=== PATIENT | male | born 1980 | race Caucasian/White ===

== ENCOUNTER 2018-03-02 15:16 | Emergency (ER) | payer OTHER, BC ==
[2018-03-02] MEDS ORDERED: Diphtheria,Pertussis(Acell),Tetanus Vaccine 0.5 ML Syringe IM ONE (15:36)
--- NOTE | 2018-03-02 16:01 | CR ---
EXAMINATION: Right hand, second digit HISTORY: Injury COMPARISON: 07/21/2010 TECHNIQUE: 3 views FINDINGS/IMPRESSION: Comminuted fractures through the distal first phalanx. Margins appear somewhat c orticated and an old injury cannot be excluded. Soft tissue swelling noted overlying the proximal asp ect of the phalanx.
[2018-03-02] MEDS ORDERED: ceFAZolin 1 GM Vial IM ONE (16:06)
--- NOTE | 2018-03-02 16:24 | EDM.PDOC ---
ED HPI GENERAL MEDICAL PROBLEM - General Chief Complaint: Laceration Stated Complaint: INJURY FINGER AT WORK Time Seen by Provider: 03/02/18 16:13 Source of Information: Reports: Patient, Family History Limitations: Reports: No Limitations - History of Present Illness INITIAL COMMENTS - FREE TEXT/NARRATIVE: HISTORY AND PHYSICAL: []Presents with laceration injury to his right index finger. Gloves are on. Patient was putting a tire on the rim with a hydraulic machine and caught his right index finger between the rim and the tire. History of Present Illness: []Patient has history of tuft fracture to the right index finger Patient does not remember exactly when his last tetanus shot was received probably 10 years ago Review of Systems: As per history of present illness and below otherwise all systems reviewed and negative. Past medical history: As per history of present illness and as reviewed below otherwise noncontributory. Surgical history: As per history of present illness and as reviewed below otherwise noncontributory. Social history: No reported history of drug or alcohol abuse. Family history: As per history of present illness and as reviewed below otherwise noncontributory. Physical exam: Pleasant alert gentleman who is answering questions in full sentences, without any shortness of breath. HEENT: Atraumatic, normocehpalic, pupils reactive, negative for conjunctival pallor or scleral icterus, mucous membranes moist, throat clear, neck supple, nontender, trachea midline. Lungs: Clear to auscultation, breath sounds equal bilaterally, chest non tender. Heart: S1S2, regular, negative for clicks, rubs, or JVD. Abdomen: Soft, nondistended, nontender. Negative for masses or hepatossplenmegaly. Negative for costovertebral tenderness. Pelvis: Stable nontender. Genitourinary: Deferred. Rectal: Deferred Extremities: traumatic to his right index finger almost circumferential involving three quarters of the finger. He is able to flex and extend his finger., negative for cords or calf pain. Neurovascular unremarkable. Neuro: Awake, alert, oriented. Cranial nerves II through XII unremarkable. Cerebellum unremarkable. Motor and sensory unremarkable throughout. Exam nonfocal. Discussed this case with , hand specialist jackeline Mac [place] who recommended to wash well and place on oral keflex then he would see him on MondayMarch 05. I expressed concern of the laceration possibly extending into the joint and no change was made with the recommendation. 3 sutures were placed after copious saline washing, no foreign material was seen , we'll place on oral cephalexin refer to hand surgeon of choice. Diagnostics: []X-ray index finger on right Therapeutics: []ancef t-dap. Impression: []laceration Plan: []Discharge to home See hand surgeon on Monday, April 04, 2010 Bacitracin applied over laceration and bulky dressing over that Hydrocodone/APAP 10 mg 3 times a day prn pain #12NR Return to the emergency department as directed and discussed Definitive disposition and diagnosis as appropriate pending reevaluation and review of above. Onset: Today, Sudden Location: Reports: Upper Extremity, Right Right 2-Index finger Pain Score (Numeric/FACES): 7 - Related Data Allergies Allergy/AdvReac Type Severity Reaction Status Date / Time No Known Allergies Allergy Verified 03/02/18 15:35 Home Meds: Home Meds . [No Known Home Meds] 03/02/18 [History] Past Medical History - Past Health History Medical/Surgical History: Denies Medical/Surgical History - Infectious Disease History Infectious Disease History: Reports: Chicken Pox Social & Family History - Family History Family Medical History: Noncontributory - Tobacco Use Smoking Status *Q: Current Every Day Smoker Years of Tobacco use: 18 Packs/Tins Daily: 1 - Recreational Drug Use Recreational Drug Use: No ED ROS GENERAL - Review of Systems Review Of Systems: ROS reveals no pertinent complaints other than HPI. ED EXAM, SKIN/RASH Exam: See Below (see dictation) ED SKIN PROCEDURES - Laceration/Wound Repair Right Medial Finger Lac/Wound length In cm: 3.5 Appearance: Muscle, Linear, Mildly Contaminated Distal NVT: Neuro & Vascular Intact Anesthetic Type: Local Local Anesthesia - Lidocaine (Xylocaine): 1% Plain Local Anesthetic Volume: 5cc Skin Prep: Saline Suture Size: 4-0 # of Sutures: 3 Suture Type: Nylon, Interrupted, Simple Drain Placement: No Sterile Dressing Applied: Nurse Tetanus Status Addressed: Yes Complications: Yes Course - Vital Signs Last Recorded V/S: Last Vital Signs Temp 36.1 C 03/02/18 15:31 Pulse 106 H 03/02/18 15:31 Resp 18 03/02/18 15:31 BP 164/108 H 03/02/18 15:31 Pulse Ox 100 03/02/18 15:31 - Orders/Labs/Meds Orders: Active Orders 24 hr Category Date Time Status Vaccines to be Administered [RC] PER UNIT ROUTINE Care 03/02/18 15:36 Active Meds: Medications Discontinued Medications Generic Name Dose Route Start Last Admin Trade Name Jamil PRN Reason Stop Dose Admin Bacitracin 2 dose 03/02/18 17:04 Bacitracin Oint 1 Gm TOP 03/02/18 17:05 ONETIME ONE Cefazolin Sodium 1 gm 03/02/18 16:06 03/02/18 16:38 Ancef IM 03/02/18 16:07 1 gm ONETIME ONE Administration Diphtheria/Tetanus/Acell Pertussis 0.5 ml 03/02/18 15:36 03/02/18 16:39 Adacel IM 03/02/18 15:37 0.5 ml .ONCE ONE Administration Sterile Water Confirm 03/02/18 16:31 03/02/18 16:41 Sterile Water For Injection Administered 03/02/18 16:32 1 mls/hr Dose Administration 20 mls @ as directed .ROUTE .STK-MED ONE Lidocaine HCl 20 ml 03/02/18 16:25 03/02/18 16:39 Xylocaine 1% INJECT 03/02/18 16:26 20 ml ONETIME ONE Administration Departure - Departure Time of Disposition: 17:15 Disposition: Home, Self-Care 01 Condition: Good Clinical Impression: Laceration - Discharge Information Instructions: Laceration Care, Adult, [id number], Pain Medicine Instructions , [id number], Stitches, Elli, or Adhesive Wound Closure, [id number] Referrals: PCP,None [Primary Care Provider] - Sahra Guerrero MD [Physician] - Forms: ED Department Discharge Additional Instructions: The following information is given to patients seen in the emergency department who are being discharged to home. This information is to outline your options for follow-up care. We provide all patients seen in our emergency department with a follow-up referral. The need for follow-up, as well as the timing and circumstances, are variable depending upon the specifics of your emergency department visit. If you don't have a primary care physician on staff, we will provide you with a referral. We always advise you to contact your personal physician following an emergency department visit to inform them of the circumstance of the visit and for follow-up with them and/or the need for any referrals to a consulting specialist. The emergency department will also refer you to a specialist when appropriate. This referral assures that you have the opportunity for followup care with a specialist. All of these measure are taken in an effort to provide you with optimal care, which includes your followup. Under all circumstances we always encourage you to contact your private physician who remains a resource for coordinating your care. When calling for followup care, please make the office aware that this follow-up is from your recent emergency room visit. If for any reason you are refused follow-up, please contact the [facility] emergency department at and asked to speak to the emergency department charge nurse. You had 1 g of Ancef IM Will be placed on cephalexin 500 mg 3 times a day Hydrocodone/APAP 10/325 one 3 times a day when necessary pain number of 12 Follow-up with Dr. Deidre Guerrero [facility] [address] [place] [address], [address] [place] [address] Admission option would be to see [place] on [phone] Any worsening of symptoms return to the emergency department over the weekend for reevaluation as discussed - My Orders Last 24 Hours: My Active Orders 03/02/18 15:36 Vaccines to be Administered [RC] PER UNIT ROUTINE - Assessment/Plan Last 24 Hours: My Active Orders 03/02/18 15:36 Vaccines to be Administered [RC] PER UNIT ROUTINE
[2018-03-02] MEDS ORDERED: Lidocaine 1% 20 ML MDV INJECT ONE (16:25)
[2018-03-02] MEDS ORDERED: Water For Injection, Sterile 20 ML ONE (16:31)
[2018-03-02] MEDS ORDERED: Bacitracin Oint 1 GM U/D Packet TOP ONE (17:04)
== END 2018-03-02 17:35 | disposition home or self-care (01) ==
LOC: MW.ED 15:16
DX: S61.210A Laceration without foreign body of right index finger without damage to nail, initial encounter (principal); F17.210 Nicotine dependence, cigarettes, uncomplicated; Z23 Encounter for immunization; W23.1XXA Caught, crushed, jammed, or pinched between stationary objects, initial encounter
CPT/HCPCS: 12002; 73140; 90471; 90715; 96372; 99283; J0690

== ENCOUNTER 2024-11-16 17:29 | Emergency (ER) | payer BC, OTHER | END 2024-11-16 19:15 | disposition home or self-care (01) | LOC: MW.ED 17:29 | DX: K04.7 Periapical abscess without sinus (principal); Z75.8 Other problems related to medical facilities and other health care; Z79.899 Other long term (current) drug therapy | CPT/HCPCS: 99283 ==